=== PATIENT | female | born 1950 | race African-American/Black ===

== ENCOUNTER 2021-11-19 15:07 | Outpatient (CLI) | payer OTHER, SELFPAY ==
--- NOTE | ~2021-11-19 | CT_ITS ---
EXAMINATION: CT cervical spine wo con DATE: 11/19/2021 15:32 INDICATION: Acute sprain of neck ligament from a fall TECHNIQUE: Computed tomography (CT) of the cervical spine was performed without intravenous contrast. Automated exposure control and iterative reconstruction technique were employed. Exam dose: 299.96 mGy-cm total exam DLP. COMPARISON: None FINDINGS: C1 and C2 are normally aligned and the odontoid process is intact. No fracture or dislocati on or locked facet or prevertebral soft tissue swelling. There is mild degenerative spurring of the cervical vertebral bodies but the cervical interspaces are relatively well preserved except for mild loss of height at C5-6. Incidentally noted are emphysematous changes in the included upper lungs. IMPRESSION: Mild degenerative change; no fracture or dislocation or locked facet Reviewed, dictated and finalized at [facility]. Reviewed, dictated and finalized at [facility]. IMPRESSION: Mild degenerative change; no fracture or dislocation or locked fac et
--- NOTE | ~2021-11-19 | CT_ITS ---
EXAMINATION: CT brain wo con DATE: 11/19/2021 15:32 INDICATION: Patient fell 2 weeks ago and struck head. No loss of consciousness. TECHNIQUE: Computed tomography (CT) of the head was performed without intravenous contrast. The mA wa s adjusted according to patient size. Iterative reconstruction technique was employed. Exam dose: 52 4.62 mGy-cm total exam DLP. COMPARISON: None FINDINGS: Mild bilateral basal ganglia calcification. Prominent bilateral carotid siphon internal carotid artery calcifications. There is nonspecific dimin ished attenuation of the cerebral white matter, likely due to chronic small vessel ischemic changes. No intracranial mass lesion or hemorrhage, midline shift or mass effect. There is mild cerebral and c erebellar volume loss. No subdural or epidural hematoma. No fracture or bone destruction of the cranial vault. Included mastoid air cells and paranasal sinuse s are normally developed and aerated. IMPRESSION: Cerebral atherosclerosis and chronic small vessel ischemic changes of the cerebral white matter No acute intracranial finding or hemorrhage or skull fracture Reviewed, dictated and finalized at [facility]. Reviewed, dictated and finalized at [facility].
== END 2021-11-19 15:08 ==
PROVIDERS: PCP Internal Medicine; Visit Provider Internal Medicine
DX: S06.0X0A Concussion without loss of consciousness, initial encounter (principal); S13.9XXA Sprain of joints and ligaments of unspecified parts of neck, initial encounter; X58.XXXA Exposure to other specified factors, initial encounter
CPT/HCPCS: 70450; 72125